=== PATIENT | male | born 1985 | race Caucasian/White ===

== ENCOUNTER 2017-02-05 18:52 | Emergency (ER) | payer MEDICAID ==
[~2017-02-05] VITALS: Ht 170.2 cm; Wt 74.8 kg
[2017-02-05 19:00] VITALS: BP_SYST 117
[2017-02-05] MEDS ORDERED: ONDANSETRON HCL 4 MG/2 ML VIAL IVP ONE (19:00)
[2017-02-05] MEDS ORDERED: NACL 0.9% 1,000 ML IV ONE (19:00)
[2017-02-05] MEDS ORDERED: PANTOPRAZOLE SODIUM 40 MG/VIAL (PROTONIX) IVP ONE (19:15)
[2017-02-05 19:28] LABS: BASOPHILS # (AUTO) 0.1 K/uL (0.0-0.2); BASOPHILS % (AUTO) 0.8 % (0.0-2.0); EOSINOPHILS # (AUTO) 0.5 K/uL (0.0-0.4); EOSINOPHILS % (AUTO) 5.4 % (0.0-4.0); HEMATOCRIT 46.6 % (36-54); HEMOGLOBIN 15.6 g/dL (14.0-18.0); LYMPHOCYTES # (AUTO) 1.4 K/uL (1.0-5.5); MEAN CORPUSCULAR HEMOGLOBIN 28 pg (27-31); MEAN CORPUSCULAR HGB CONC 33 % (32-36); MEAN CORPUSCULAR VOLUME 84 fL (79.0-98.0); MONOCYTES # (AUTO) 0.9 K/uL (0.0-1.0); MONOCYTES % (AUTO) 10.6 % (1.7-9.3); NEUTROPHILS # (AUTO) 5.6 K/uL (1.8-7.7); NEUTROPHILS % (AUTO) 67.2 % (40.0-70.0); PLATELET COUNT (AUTO) 319 K/uL (130-430); RED BLOOD CELL COUNT(AUTO) 5.57 MIL/uL (4.2-6.2); WHITE BLOOD COUNT (AUTO) 8.5 K/uL (4.8-10.8)
[2017-02-05 19:35] LABS: CALCIUM 8.5 mg/dL (8.4-11.0); CREATININE 1.23 mg/dL (0.55-1.30); POTASSIUM 3.5 mmol/L (3.5-5.1)
[2017-02-05 19:40] LABS: ALBUMIN 3.8 g/dL (3.4-4.8); TOTAL BILIRUBIN 0.4 mg/dL (0.0-1.0); TOTAL PROTEIN, SERUM 7.6 g/dL (6.4-8.3)
[2017-02-05 20:03] LABS: BILIRUBIN,URINE NEGATIVE (NEGATIVE); BLOOD, URINE 3+ (NEGATIVE); CLARITY/URINE HAZY (CLEAR); COLOR,URINE YELLOW (YELLOW); GLUCOSE,URINE NEGATIVE (NEGATIVE); KETONES,URINE NEGATIVE (NEGATIVE); LEUKOCYTE ESTERASE ,URINE NEGATIVE (NEGATIVE); NITRITE, URINE NEGATIVE (NEGATIVE); PH,URINE 5.5 (5.0-8.0); PROTEIN URINE 1+ (NEGATIVE); UROBILINOGEN,URINE 0.2 (0.2-1.0)
[2017-02-05 20:29] LABS: BACTERIA,URINE FEW /HPF (None Seen); MUCUS,URINE 2+ /LPF (None Seen); RBC,URINE 50-80 /HPF (0-3); WBC,URINE 0-3 /HPF (0-3)
[2017-02-05 20:38] VITALS: BP_SYST 114
== END 2017-02-05 20:35 | disposition home or self-care (01) ==
LOC: SED 18:52
DX: A08.4 Viral intestinal infection, unspecified (principal)
CPT/HCPCS: 36415; 80053; 81000; 83605; 85025; 87040; 89055; 96361; 96374; 96375; 99284; C9113; J2405; J7030

== ENCOUNTER 2017-03-11 12:43 | Emergency (ER) | payer MEDICAID ==
[~2017-03-11] VITALS: Ht 170.2 cm; Wt 78.5 kg
[2017-03-11 12:46] VITALS: BP_SYST 126
[2017-03-11] MEDS ORDERED: DIPH-TET-PERTUS Vaccine 0.5 ML VIAL (ADACEL) IM ONE (14:00)
[2017-03-11 14:21] VITALS: BP_SYST 121
== END 2017-03-11 14:21 | disposition home or self-care (01) ==
LOC: SED 12:44
DX: S61.210A Laceration without foreign body of right index finger without damage to nail, initial encounter (principal); W45.8XXA Other foreign body or object entering through skin, initial encounter; Y93.89 Activity, other specified; Y92.89 Other specified places as the place of occurrence of the external cause; Y99.8 Other external cause status
CPT/HCPCS: 90715; 99283

== ENCOUNTER 2021-11-20 10:54 | Emergency (ER) | payer MEDICAID ==
[~2021-11-20] VITALS: Ht 172.7 cm; Wt 83.9 kg
[2021-11-20 11:07] VITALS: BP_SYST 115
[2021-11-20] MEDS ORDERED: HYDR-3917 PO (11:45)
[2021-11-20 12:03] VITALS: BP_SYST 119
[2021-11-23] MEDS ORDERED: ALBMDI INH (02:17)
[2021-11-23] MEDS ORDERED: PRED20TA PO (02:17)
== END 2021-11-20 12:03 | disposition home or self-care (01) ==
LOC: SED 10:54
DX: S22.32XA Fracture of one rib, left side, initial encounter for closed fracture (principal); Z79.899 Other long term (current) drug therapy; Y04.0XXA Assault by unarmed brawl or fight, initial encounter; Y93.89 Activity, other specified; Y92.89 Other specified places as the place of occurrence of the external cause; Y99.8 Other external cause status
CPT/HCPCS: 71045; 71100; 99284

== ENCOUNTER 2021-12-05 13:08 | Emergency (ER) | payer MEDICAID ==
[~2021-12-05] VITALS: Ht 177.8 cm; Wt 83.9 kg
[~2021-12-05 13:08] MED LIST: ALBMDI INH; HYDR-3917 PO; PRED20TA PO
[2021-12-05 13:18] VITALS: BP_SYST 137
[2021-12-05 13:58] VITALS: BP_SYST 137
== END 2021-12-05 13:59 | disposition home or self-care (01) ==
LOC: SED 13:08
DX: S20.212A Contusion of left front wall of thorax, initial encounter (principal); X58.XXXA Exposure to other specified factors, initial encounter; Y93.89 Activity, other specified; Y92.89 Other specified places as the place of occurrence of the external cause; Y99.8 Other external cause status
CPT/HCPCS: 99281

== ENCOUNTER 2023-01-08 21:00 | Emergency (ER) | payer MEDICAID ==
[~2023-01-08] VITALS: Ht 170.2 cm; Wt 83.9 kg
[2023-01-08 21:18] VITALS: BP_SYST 113
--- NOTE | 2023-01-08 21:22 | NUR ---
PT BIB [facility] HOME C/O R LOWER LEG SWELLING W/ ERYTHEMA, HOT & TENDER TO TOUCH. ALSO C/O 9/10 PAIN SINCE HE WOKE UP THIS AM. DENIES TRAUMA TO IT. PT TOOK IBURPOFEN 800MG AT 1500 TODAY. DENIES PMH. NKDA.PT AMBULATORY. AA&OX4. VSS.
--- NOTE | 2023-01-08 21:24 | NUR ---
Patient triaged and placed in waiting room. VSS and patient appears in no acute distress at this time. Accompanied by SIGNIFICANT OTHER, awaiting available bed, and MD notified of need for MSE.
--- NOTE | 2023-01-08 23:35 | NUR ---
PT FROM HOME WITH C/O RIGHT LOWER LEG PAIN THAT HE REPORTS STARTED TODAY. RIGHT LEG EZIO AND WARM TO TOUCH. PT DESCRIBES PAIN SHAPR AND BURNING, RATED 9/10. VSS.
--- NOTE | 2023-01-08 23:46 | NUR ---
DR. LORENZO AT BEDSIDE WITH PATIENT FOR MSE.
[2023-01-08] MEDS ORDERED: CEPH-548 PO (23:57)
[2023-01-08] MEDS ORDERED: IBUP-1971 PO (23:57)
[2023-01-09] MEDS ORDERED: KETOROLAC TROMETHAMINE 60 MG/2 ML VIAL IM ONE
--- NOTE | 2023-01-09 | NUR ---
PT REQUESTING DOSE OF ANTIBIOTIC HERE IN ER BEFORE D/C. DR. LORENZO MADE AWARE. NO NEW ORDERS AT THIS TIME.
[2023-01-09 00:05] VITALS: BP_SYST 120
--- NOTE | 2023-01-09 00:05 | NUR ---
Patient given written and verbal discharge instructions and verbalizes understanding. ER DR. LORENZO discussed with patient the results and treatment provided. Patient in stable condition. ID arm band removed. Rx of CEPHALEXIN AND MOTRIN given. Patient educated on pain management and to follow up with PMD. Pain Scale 0. Opportunity for questions provided and answered. Medication side effect fact sheet provided.
== END 2023-01-09 00:05 | disposition home or self-care (01) ==
LOC: SED 21:00
DX: L03.115 Cellulitis of right lower limb (principal); R22.41 Localized swelling, mass and lump, right lower limb; Z79.899 Other long term (current) drug therapy
CPT/HCPCS: 99283; 96372; J1885